=== PATIENT | female | born 1985 ===

== ENCOUNTER 2021-02-17 17:52 | Emergency (ER) | payer BC ==
[~2021-02-17] VITALS: Ht 160 cm; Wt 74.8 kg
== END 2021-02-17 22:28 | disposition home or self-care (01) ==
LOC: ER 17:52
DX: O20.9 Hemorrhage in early pregnancy, unspecified (principal); O34.11 Maternal care for benign tumor of corpus uteri, first trimester; D25.9 Leiomyoma of uterus, unspecified; Z3A.01 Less than 8 weeks gestation of pregnancy